=== PATIENT | female | born 1995 | race Caucasian/White ===

== ENCOUNTER 2017-04-07 16:39 | Emergency (ER) | payer SELFPAY ==
[2017-04-07] MEDS ORDERED: Lidocaine 2% W/EPI 1:100,000* 20 ML MDV INJ ONE (17:11)
[2017-04-07 18:03] VITALS: BP 106/68
--- NOTE | 2017-04-07 22:51 | UC ---
Colt Todd SooYoung, scribed for Zach Ramsey MD on 04/07/17 at 1710 . Syncope/New Syncope HPI - HPI Summary HPI Summary: A 21 y/o F [place] [facility] [place] lac after syncopal episode at approx 1600. Pt states she hadn't eaten all day and was in the kitchen getting ready to make something eat when she felt very lightheaded. She tried to put her head down to rest, but then she fainted and woke up on the floor. Episode of LOC seemed to last approx 30 secs to 1 min. Associated sx: pain along chin at site of lac. Denies: dental pain, jaw pain, cuts in mouth, chipped tooth, CP , SOB. Smoker. Has PMHx: syncope in middle school. - History Of Current Complaint Chief Complaint: UCGeneralIllness Stated Complaint: FAINTED,CHIN LAC Time Seen by Provider: 04/07/17 16:58 Hx Obtained From: Patient, Family/[employer] - father present Hx Last Menstrual Period: 03/26/17 Onset/Duration: Sudden Onset, Lasting Hours - onset 1600, Still Present Activity At Onset: At Rest - standing/getting ready to cook Timing: Frequency Of Episodes - 1x, lasting 30 sec - 1min Context: Unwitnessed, Loss Of Consciousness Associated Head Trauma: No Pain Intensity: 6 Pain Scale Used: 0-10 Numeric Associated Signs And Symptoms: Positive: Lightheadedness, Pain. Negative: Chest Pain, Shortness Of Breath - Allergies/Home Medications Allergies/Adverse Reactions: Allergies Allergy/AdvReac Type Severity Reaction Status Date / Time No Known Allergies Allergy Verified 09/05/15 18:43 PMH/Surg Hx/FS Hx/Imm Hx Previously Healthy: Yes - Surgical History Surgical History: None - Family History Known Family History: Positive: Other - thyroid dz - Social History Occupation: Unemployed Lives: With Family - [employer] Alcohol Use: Rare Substance Use Type: None Smoking Status (MU): Light Every Day Tobacco Smoker Type: Cigarettes Length of Time of Smoking/Using Tobacco: 5 cigs daily Household Exposure Type: Cigarettes Review of Systems Skin: Other - pos: small lac to chin ENT: Negative Respiratory: Negative Cardiovascular: Negative Musculoskeletal: Other: - pos: pain at chin Neurological: Other - pos: syncope, lightheadedness All Other Systems Reviewed And Are Negative: Yes Physical Exam Triage Information Reviewed: Yes Vital Signs: Initial Vital Signs Temp 97.6 F 04/07/17 16:40 Pulse 82 04/07/17 16:40 Resp 16 04/07/17 16:40 BP 120/60 04/07/17 16:40 Pulse Ox 100 04/07/17 16:40 Vital Signs Reviewed: Yes - Additional Comments The patient is well-nourished in no acute distress and in no acute pain. The skin is warm and dry and skin color reflects adequate perfusion. 2 CM LONG LINEAR LAC ON CHIN. HEENT: The head is normocephalic and atraumatic. The pupils are equal and reactive. The conjunctivae are clear and without drainage. Nares are patent and without drainage. Mouth reveals moist mucous membranes and the throat is without erythema and exudate. The external ears are intact. The ear canals are patent and without drainage. The tympanic membranes are intact. NO CUT IN ORAL CAVITY. TEETH ALIGNED. Neck is supple with full range of motion and non-tender. There are no carotid bruits. There is no neck vein distension. Respiratory: Chest is non-tender. Lungs are clear to auscultation and breath sounds are symmetrical and equal. Cardiovascular: Heart is regular rate and rhythm. There is no murmur or rub auscultated. There is no peripheral edema and pulses are symmetrical and equal. Abdomen: The abdomen is soft and non-tender. There is no organomegaly palpated. Musculoskeletal: There is no back pain noted. Extremities are non-tender with full range of motion. There is no peripheral edema or calf tenderness elicited. Neurological: Patient is alert and oriented to person, place and time. The patient has symmetrical motor strength in all four extremities. Cranial nerves are grossly intact. Deep tendon reflexes are symmetrical and equal in all four extremities. Psychiatric: The patient has an appropriate affect and does not exhibit any anxiety or depression. Procedures - Laceration/Wound Repair 1 Location: face - chin Description: Linear Anesthesia: Local, 2.0%, Lido, Epi Length, Depth and Shape: 2cm by 0.5 cm deep, linear Betadine Prep?: No - habicleanse and saline Irrigated w/ Saline (ccs): 10 Laceration/Wound Explored: clean Closure: Multilayer - 9 simple sutures on top, 2 subQ Debridement: no Suture Type: Vicryl, Other - 5-0 vicryl. 6-0 ethylene Number of Sutures: 11 Layer Closure?: Yes - 2 layers Sterile Dressing Applied?: Yes Syncope Course/Dx - Course Course Of Treatment: Pt medications reviewed this visit. Normal BP reading and no follow-up instructions required. - Differential Dx/Diagnosis Provider Diagnoses: Chin laceration. Syncope. Discharge - Discharge Plan Condition: Stable Disposition: HOME Patient Education Materials: Facial Laceration (ED), Care For Your Stitches (ED ) Referrals: Maddi Cano DO [Doctor of Osteopathy] - Additional Instructions: The stitches will need to be removed in 5 days, either at your primary care provider or return to Urgent Care. Cleanse twice a day, soak in water to clean, apply triple antibiotic ointment as needed. Avoid direct sunlight for 6 months. The documentation as recorded by the [employer]t shoemaker SooYoung accurately reflects the service I personally performed and the decisions made by me, Zach Ramsey MD.
== END 2017-04-07 18:03 | disposition home or self-care (01) ==
LOC: UCEAST 16:39
DX: R55 Syncope and collapse (principal); S01.80XA Unspecified open wound of other part of head, initial encounter; W20.1XXA Struck by object due to collapse of building, initial encounter; Y93.G3 Activity, cooking and baking; Y92.010 Kitchen of single-family (private) house as the place of occurrence of the external cause; Y99.9 Unspecified external cause status; Z72.0 Tobacco use
CPT/HCPCS: 12011; 99202; 99203; G0463

== ENCOUNTER 2017-04-12 15:52 | Emergency (ER) | payer SELFPAY ==
[2017-04-12 15:59] VITALS: BP 117/55
--- NOTE | 2017-04-12 16:40 | ED ---
Skin Complaint - HPI Summary HPI Summary: 21 y/o female presents to the urgent care for suture removal s/p laceration of her ashby in 04/07/2017. Patient states her wound is healing well with no signs of infection, pain, or swelling. Patient denies fever, - History of Current Complaint Chief Complaint: UCWounds Time Seen by Provider: 04/12/17 16:18 Stated Complaint: SUTURE REMOVAL Hx Obtained From: Patient Hx Last Menstrual Period: 2.5 WEEKS AGO Onset/Duration: Started Days Ago, Still Present Skin Exposure Onset/Duration: Days Ago Timing: Constant Current Severity: None Pain Intensity: 0 Pain Scale Used: 0-10 Numeric Skin Location: Face - ashby laceration Aggravating Symptom(s): Nothing Alleviating Symptom(s): Nothing Associated Signs & Symptoms: Negative - Allergy/Home Medications Allergies/Adverse Reactions: Allergies Allergy/AdvReac Type Severity Reaction Status Date / Time No Known Allergies Allergy Verified 04/12/17 15:58 PMH/Surg Hx/FS Hx/Imm Hx Previously Healthy: Yes Endocrine/Hematology History: Denies: Hx Diabetes, Hx Thyroid Disease Cardiovascular History: Denies: Hx Hypertension Respiratory History: Denies: Hx Asthma, Hx Chronic Obstructive Pulmonary Disease (COPD) GI History: Denies: Hx Ulcer Infectious Disease History: No Infectious Disease History: Denies: Hx Clostridium Difficile, Hx Hepatitis, Hx Human Immunodeficiency Virus (HIV), Hx of Known/Suspected MRSA, Hx Shingles, Hx Tuberculosis, Hx Known/ Suspected VRE, Hx Known/Suspected VRSA, History Other Infectious Disease, Traveled Outside the [place] in Last 30 Days - Family History Known Family History: Positive: Other - thyroid dz - Social History Occupation: Student Lives: With Family Alcohol Use: None Substance Use Type: Reports: None Smoking Status (MU): Current Every Day Smoker Type: Cigarettes Amount Used/How Often: 1/2 PPD Length of Time of Smoking/Using Tobacco: 5 cigs daily Review of Systems Constitutional: Negative Eyes: Negative ENT: Negative Cardiovascular: Negative Respiratory: Negative Gastrointestinal: Negative Genitourinary: Negative Skin: Other - ashby with stiches Neurological: Negative Psychological: Normal All Other Systems Reviewed And Are Negative: Yes Physical Exam Triage Information Reviewed: Yes Vital Signs On Initial Exam: Initial Vitals Temp Pulse Resp BP 99.2 F 74 16 117/55 04/12/17 15:58 04/12/17 15:58 04/12/17 15:58 04/12/17 15:58 Vital Signs Reviewed: Yes Appearance: Positive: Well-Appearing, No Pain Distress Skin: Positive: Warm, Skin Color Reflects Adequate Perfusion, Dry, Other - ashby with laceration and 9 stiches in placed, wound healing well no erythema, swelling, or tenderness on palapation. Head/Face: Positive: Normal Head/Face Inspection Eyes: Positive: Normal, EOMI, PUMA ENT: Positive: Normal ENT inspection, Hearing grossly normal, Pharynx normal, Pharyngeal erythema Respiratory/Lung Sounds: Positive: Clear to Auscultation, Breath Sounds Present Cardiovascular: Positive: Normal, RRR, Pulses are Symmetrical in both Upper and Lower Extremities, S1, S2 Abdomen Description: Positive: Nontender, No Organomegaly, Soft Bowel Sounds: Positive: Present Musculoskeletal: Positive: Normal Neurological: Positive: Normal Psychiatric: Positive: Normal Diagnostics - Vital Signs Vital Signs Temp Pulse Resp BP 04/12/17 16:02 99.2 F 74 16 117/55 04/12/17 15:58 99.2 F 74 16 117/55 - Laboratory Lab Statement: Any lab studies that have been ordered have been reviewed, and results considered in the medical decision making process. Course/Dx - Course Course Of Treatment: Pt for suture removal s/p laceration to her ashby on 2016 with 9 stiches on her ashby. No erythema, swelling or tenderness on palpation, wound healing well. 9 stiches removed. Patient tolerated well procedure. Patient advised if signs of infection developed to please return to the urgent care for [facility]. Pt understood and agreed. - Differential Diagnoses - Skin Complaint Differential Diagnoses: Cellulitis, Other - suture removal s/p laceration - Diagnoses Provider Diagnoses: Visit for suture removal Discharge - Discharge Plan Condition: Stable Disposition: HOME Patient Education Materials: Stitches Removal (ED) Referrals: Luz Elena Chang MD [Primary Care Provider] - Additional Instructions: Please continue placing antibiotic ointment for 1-3 days. If any signs of infection please return to the urgent care for further evaluation and treatment.
== END 2017-04-12 16:48 | disposition home or self-care (01) ==
LOC: UCEAST 15:52
DX: S01.81XD Laceration without foreign body of other part of head, subsequent encounter (principal); X58.XXXD Exposure to other specified factors, subsequent encounter; F17.210 Nicotine dependence, cigarettes, uncomplicated